=== PATIENT | female | born 1940 | race Caucasian/White ===

== ENCOUNTER → 2018-11-22 | Outpatient (CLI) | payer OTHER | LOC: RAD 13:13 | DX: J98.11 Atelectasis (principal); I10 Essential (primary) hypertension ==

== ENCOUNTER 2019-10-07 10:00 | Emergency (ER) | payer OTHER ==
[~2019-10-07] VITALS: Ht 172.7 cm; Wt 110.2 kg
[2019-10-07] MEDS ORDERED: ANORO ELLIPTA1 EACH INH (10:16)
[2019-10-07] MEDS ORDERED: METFORMIN HCL500 M1 PO (10:16)
[2019-10-07] MEDS ORDERED: PROAIR HFA8.5 GM INH (10:16)
[2019-10-07 11:07] LABS: ABSOLUTE NEUTROPHILS 10.1 thou/uL (1.4-8.2); BASOPHILS 0.2 % (0.0-2.0); EOSINOPHILS 0.1 % (0.0-3.0); HEMATOCRIT 49.1 % (37.0-47.0); HEMOGLOBIN 16.1 gm/dL (12.0-15.0); LYMPHOCYTES 7.2 % (24.0-44.0); MCH 28.9 pg (26.0-34.0); MCHC 32.8 g/dL (28.0-37.0); MCV 88.2 fL (80.0-100.0); MONOCYTES 4.9 % (1.0-8.0); PLATELET COUNT 153 thou/uL (150-400); POLYS 87.6 % (36.0-66.0); RBC 5.57 mil/uL (4.20-5.00); RDW 15.1 % (10.5-14.5); WBC 11.6 thou/uL (4.0-11.0)
[2019-10-07 11:21] LABS: ANION GAP 8 mmol/L (7-16); BUN 19 mg/dL (7-18); CALCIUM 10.1 mg/dL (8.5-10.1); CHLORIDE 104 mmol/L (98-107); CO2 29 mmol/L (21-32); CREATININE 1.3 mg/dL (0.6-1.0); GLUCOSE 196 mg/dL (74-106); POTASSIUM 4.1 mmol/L (3.5-5.1); SODIUM 141 mmol/L (136-145)
[2019-10-07 11:32] LABS: LIPASE 134 U/L (73-393); SGOT 18 U/L (15-37); SGPT 23 U/L (30-65); TOTAL BILIRUBIN 1.5 mg/dL (<0.1-1.0); TOTAL PROTEIN 7.5 g/dL (6.4-8.2); TROPONIN-I <0.06 ng/mL (<0.06)
[2019-10-07] MEDS ORDERED: LIPITOR 20 MG T20 M1 PO (12:11)
[2019-10-07] MEDS ORDERED: AMARYL4 MG PO (12:11)
[2019-10-07] MEDS ORDERED: LEVO-T75 MCG PO (12:11)
[2019-10-07] MEDS ORDERED: LOSARTAN-HCTZ1 EACH PO (12:12)
[2019-10-07] MEDS ORDERED: REQUIP 1 MG TABL1 M1 PO (12:12)
[2019-10-07] MEDS ORDERED: MEGARED OMEGA-1 EAC1 PO (12:13)
[2019-10-07 12:36] LABS: URINE BILIRUBIN NEGATIVE (Negative); URINE BLOOD 3+ (Negative); URINE CLARITY CLEAR; URINE COLOR YELLOW; URINE GLUCOSE-RANDOM* NEGATIVE (Negative); URINE KETONES TRACE (Negative); URINE LEUKOCYTES-REFLEX TRACE (Negative); URINE NITRITE-REFLEX NEGATIVE (Negative); URINE PROTEIN (DIPSTICK) TRACE (Negative); URINE SPECIFIC GRAVITY 1.015 (1.005-1.035); URINE UROBILINOGEN 0.2 E.U./dl (0.2-1.0)
[2019-10-07 12:42] LABS: SQUAMOUS 4-10 Moderate /LPF (0-3)
[2019-10-07 12:43] LABS: CASTS None Seen /LPF (None Seen); CRYSTALS None Seen /LPF (None Seen); MUCUS 0-3 Light strn/LPF (None Seen)
[2019-10-07 12:44] LABS: BACTERIA-REFLEX 1-9 Few /HPF (None Seen); RENAL EPITHELIAL CELLS 0-3 Few /LPF (None Seen); TRANSITIONAL EPITHEL CELL 0-3 Few /LPF (None Seen); URINE RBC >20 Many /HPF (0-2); URINE WBC-REFLEX 0-5 Rare /HPF (0-5)
[2019-10-07] MEDS ORDERED: ZOFRAN ODT4 MG PO (13:20)
[2019-10-07] MEDS ORDERED: NORCO 5-325 TA1 EAC1 PO (13:20)
[2019-10-07] MEDS ORDERED: KEFLEX500 M1 PO (13:20)
[2019-10-07 13:29] VITALS: BP 156/74
--- NOTE | 2019-10-08 08:06 | EKG ---
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: [facility] : 1940 Requested By: Mainor Espinoza Order Number: [id number] MD: Guevara Nation Measurements Intervals [place] Rate: 80 P: 50 DE: 165 QRS: -66 QRSD: 144 T: 25 QT: 428 QTc: 494 Interpretive Statements Sinus rhythm RBBB and LAFB Left ventricular hypertrophy No previous ECG available for comparison Electronically Signed On 10-08-2019 8:04:21 CDT by Guevara Nation [email or web address] <ELECTRONICALLY SIGNED> By: uGevara Nation MD, [facility] 10/08/19 0804 1107 110 Guevara Nation MD, [facility] /EPI
== END 2019-10-07 13:29 | disposition home or self-care (01) ==
LOC: ER 10:00
PROVIDERS: Emergency Medicine
DX: N13.2 Hydronephrosis with renal and ureteral calculous obstruction (principal); R11.2 Nausea with vomiting, unspecified; J44.9 Chronic obstructive pulmonary disease, unspecified; E11.9 Type 2 diabetes mellitus without complications; F17.210 Nicotine dependence, cigarettes, uncomplicated; Z88.0 Allergy status to penicillin; Z90.711 Acquired absence of uterus with remaining cervical stump; Z90.49 Acquired absence of other specified parts of digestive tract; Z79.899 Other long term (current) drug therapy; Z85.42 Personal history of malignant neoplasm of other parts of uterus

== ENCOUNTER → 2019-12-04 | Outpatient (CLI) | payer OTHER ==
[~2019-12-04] MED LIST: AMARYL4 MG PO; ANORO ELLIPTA1 EACH INH; KEFLEX500 M1 PO; LEVO-T75 MCG PO; LIPITOR 20 MG T20 M1 PO; LOSARTAN-HCTZ1 EACH PO; MEGARED OMEGA-1 EAC1 PO; METFORMIN HCL500 M1 PO; NORCO 5-325 TA1 EAC1 PO; PROAIR HFA8.5 GM INH; REQUIP 1 MG TABL1 M1 PO; ZOFRAN ODT4 MG PO
== END ==
LOC: RAD 09:58
PROVIDERS: ATTEND Internal Medicine
DX: I51.7 Cardiomegaly (principal)

== ENCOUNTER → 2021-04-30 | Outpatient (CLI) | payer OTHER | LOC: RAD 11:54 | DX: R05.9 Cough, unspecified (principal); R09.89 Other specified symptoms and signs involving the circulatory and respiratory systems ==

== ENCOUNTER 2021-06-21 11:26 | Emergency (ER) | payer OTHER ==
[~2021-06-21] VITALS: Ht 172.7 cm; Wt 95.3 kg
--- NOTE | ~2021-06-21 | EMS ---
[facility] [address] [place] [address] EMS Patient Care Report Name: IFEOMA OH Room #: DEP PIETER Sun#: [id number] Admission: 06/21/21 Attend Phys: Discharge: 06/21/21 Date of : 44 Report #: [id number] THIS REPORT FOR: //name// Report Transmitted: 06/23/2021 12:08 EMS Care Summary [place], [place]/[facility] Incident [id number] @ 06/21/2021 10:37 Incident Location [address] Patient IFEOMA OH Female, 80 Years 1940 Patient Address [address] [address] [place] [address] Patient History Chronic Obstructive Pulmonary Disease (COPD),Diabetes,Kidney Stone, Patient Allergies Penicillin allergy, Patient Medications Lasix, Metformin, Losartan, Levothyroxine, Chief Complaint lower L back pain Disposition Transported No Lights/[place] Dispatch Reason Sick Person Transported To [facility] Narrative 80 y/o female with lower L back pain upon arrival the pt answered her door and was ready to go. She locked her apt [facility] [address] [place] [address] EMS Patient Care Report Name: IFEOMA OH Room #: DEP Corinne#: [id number] Admission: 06/21/21 Attend Phys: Discharge: 06/21/21 Date of : 44 Report #: [id number] door, sat on the cot in a position of comfort was secured to the cot, and loaded into the ambulance. She is A&O x 4 with a GCS of 15. She has a patent airway, breathing is normal, and has a strong reg radial pulse. The pt states she has been experiencing lower L quad back pain for the last 4 days and that she thinks she has a kidney stone. The pt VS were established. The pt denies blood in urine. She states she hasn't had bowel movement in 2 days. The pt rates her pain as localized chronic lower back pain that feels like she's being stabbed in lower back and rates her pain a 10/10. The pt was transported to [place] per the pt's request with out incident or changes. The pt was transported to [place] per the pt's request. Initial Vitals @11:09P: 75,BP: 132/66,SpO2: 91, @11:06P: 84,R: 14,BP: 148/81,Pain: 10/10,GCS: 15,SpO2: 90,Revised Trauma: 12, Assessments @11:12MENTAL:Time Oriented,Event Oriented,Person Oriented,Place Oriented,SKIN:No Abnormalities,HEENT:Head/Face: No Abnormalities,Neck/Airway: No Abnormalities,LUNG SOUNDS:General: No Abnormalities,ABDOMEN:General: No Abnormalities,PELVIS//GI:No Abnormalities,EXTREMITIES:Capillary Refill: Left Upper: < 2 Sec,Capillary Refill: Right Upper: < 2 Sec,Left Arm: No Abnormalities,Right Arm: No Abnormalities,Left Leg: No Abnormalities,Right Leg: No Abnormalities,PULSE:Radial: 2+ Normal,NEURO:No Abnormalities, Impression Back Pain Procedures @11:12 ALS Assessment Response: UnchangedSucceeded Timeline 10:35,Call Received 10:35,Dispatch Notified 10:37,Dispatched 10:39,En Route 10:51,On Scene 10:52,At Patient 11:06,BP: 148/81 M,PULSE: 84,RR: 14 R,SPO2: 90 Ox,ETCO2: ,BG: ,PAIN: 10,GCS: 15, 11:09,BP: 132/66 M,PULSE: 75,RR: R,SPO2: 91 Ox,ETCO2: ,BG: ,PAIN: ,GCS: , 11:12,ALS Assessment,Response: UnchangedSucceeded, 11:18,Depart Scene 11:28,At Destination 11:40,Call Closed [facility] [address] [place] [address] EMS Patient Care Report Name: IFEOMA OH Room #: DEP [facility]#: [id number] Admission: 06/21/21 Attend Phys: Discharge: 06/21/21 Date of : 44 Report #: [id number] Disclaimer v1.1 Copyright 2021 [employer] This EMS Care Summary contains data elements from the applicable legal record (which may be displayed differently). It is designed to provide pertinent information for the following purposes: continuity of care, clinical quality, and state data reporting. The complete legal record is available to ED staff and administrators of the receiving hospital in [facility]'s Patient Tracker. All data is provided "as is."
--- NOTE | ~2021-06-21 | EMS ---
[facility] [address] [place] [address] EMS Patient Care Report Name: IFEOMA OH Room #: DEP PIETER Sun#: [id number] Admission: 06/21/21 Attend Phys: Discharge: 06/21/21 Date of : 44 Report #: [id number] THIS REPORT FOR: //name// Report Transmitted: 06/22/2021 09:57 EMS Care Summary [place], [place]/[facility] Incident [id number] @ 06/21/2021 10:37 Incident Location [address] Patient IFEOMA OH Female, 80 Years 1940 Patient Address [address] [address] [place] [address] Patient History Chronic Obstructive Pulmonary Disease (COPD),Diabetes,Kidney Stone, Patient Allergies Penicillin allergy, Patient Medications Lasix, Metformin, Losartan, Levothyroxine, Chief Complaint lower L back pain Disposition Transported No Lights/[place] Dispatch Reason Sick Person Transported To [facility] Narrative 80 y/o female with lower L back pain upon arrival the pt answered her door and was ready to go. She locked her apt [facility] [address] [place] [address] EMS Patient Care Report Name: IFEOMA OH Room #: DEP Corinne#: [id number] Admission: 06/21/21 Attend Phys: Discharge: 06/21/21 Date of : 44 Report #: [id number] door, sat on the cot in a position of comfort was secured to the cot, and loaded into the ambulance. She is A&O x 4 with a GCS of 15. She has a patent airway, breathing is normal, and has a strong reg radial pulse. The pt states she has been experiencing lower L quad back pain for the last 4 days and that she thinks she has a kidney stone. The pt VS were established. The pt denies blood in urine. She states she hasn't had bowel movement in 2 days. The pt rates her pain as localized chronic lower back pain that feels like she's being stabbed in lower back and rates her pain a 10/10. The pt was transported to [place] per the pt's request with out incident or changes. The pt was transported to [place] per the pt's request. Initial Vitals @11:09P: 75,BP: 132/66,SpO2: 91, @11:06P: 84,R: 14,BP: 148/81,Pain: 10/10,GCS: 15,SpO2: 90,Revised Trauma: 12, Assessments @11:12MENTAL:Event Oriented,Person Oriented,Place Oriented,Time Oriented,SKIN:No Abnormalities,HEENT:Head/Face: No Abnormalities,Neck/Airway: No Abnormalities,LUNG SOUNDS:General: No Abnormalities,ABDOMEN:General: No Abnormalities,PELVIS//GI:No Abnormalities,EXTREMITIES:Capillary Refill: Left Upper: < 2 Sec,Capillary Refill: Right Upper: < 2 Sec,Left Arm: No Abnormalities,Right Arm: No Abnormalities,Left Leg: No Abnormalities,Right Leg: No Abnormalities,PULSE:Radial: 2+ Normal,NEURO:No Abnormalities, Impression Back Pain Procedures @11:12 ALS Assessment Response: UnchangedSucceeded Timeline 10:35,Call Received 10:35,Dispatch Notified 10:37,Dispatched 10:39,En Route 10:51,On Scene 10:52,At Patient 11:06,BP: 148/81 M,PULSE: 84,RR: 14 R,SPO2: 90 Ox,ETCO2: ,BG: ,PAIN: 10,GCS: 15, 11:09,BP: 132/66 M,PULSE: 75,RR: R,SPO2: 91 Ox,ETCO2: ,BG: ,PAIN: ,GCS: , 11:12,ALS Assessment,Response: UnchangedSucceeded, 11:18,Depart Scene 11:28,At Destination 11:40,Call Closed [facility] [address] [place] [address] EMS Patient Care Report Name: IFEOMA OH Room #: [facility]#: [id number] Admission: 06/21/21 Attend Phys: Discharge: 06/21/21 Date of : 44 Report #: [id number] Disclaimer v1.1 Copyright 2021 [employer] This EMS Care Summary contains data elements from the applicable legal record (which may be displayed differently). It is designed to provide pertinent information for the following purposes: continuity of care, clinical quality, and state data reporting. The complete legal record is available to ED staff and administrators of the receiving hospital in [facility]'s Patient Tracker. All data is provided "as is."
[2021-06-21] MEDS ORDERED: FUROSEMIDE 20 M20 MG PO (11:43)
[2021-06-21 11:54] LABS: CALCIUM 9.8 mg/dL (8.5-10.1); CREATININE 0.6 mg/dL (0.6-1.0); POTASSIUM 4.2 mmol/L (3.5-5.1)
[2021-06-21 12:05] LABS: ALBUMIN 3.8 g/dL (3.4-5.0); TOTAL BILIRUBIN 1.8 mg/dL (0.2-1.0); TOTAL PROTEIN 6.4 g/dL (6.4-8.2)
[2021-06-21 12:15] LABS: ABSOLUTE NEUTROPHILS 5.9 thou/uL (1.4-8.2); BASOPHILS 0.9 % (0.0-2.0); EOSINOPHILS 1.4 % (0.0-3.0); HEMATOCRIT 47.1 % (37.0-47.0); HEMOGLOBIN 15.8 gm/dL (12.0-15.0); LYMPHOCYTES 14.3 % (24.0-44.0); MCH 28.9 pg (26.0-34.0); MCHC 33.5 g/dL (28.0-37.0); MCV 86.4 fL (80.0-100.0); MONOCYTES 8.4 % (1.0-8.0); PLATELET COUNT 127 thou/uL (150-400); RBC 5.45 mil/uL (4.20-5.00); RDW 14.5 % (10.5-14.5); WBC 7.9 thou/uL (4.0-11.0)
[2021-06-21 13:45] LABS: URINE BILIRUBIN NEGATIVE (Negative); URINE BLOOD 2+ (Negative); URINE CLARITY CLEAR; URINE COLOR YELLOW; URINE GLUCOSE-RANDOM* NEGATIVE (Negative); URINE KETONES TRACE (Negative); URINE LEUKOCYTES-REFLEX NEGATIVE (Negative); URINE NITRITE-REFLEX NEGATIVE (Negative); URINE PROTEIN (DIPSTICK) NEGATIVE (Negative); URINE SPECIFIC GRAVITY 1.015 (1.005-1.035)
[2021-06-21 13:55] LABS: CASTS None Seen /LPF (None Seen); CRYSTALS None Seen /LPF (None Seen); SQUAMOUS 0-3 Few /LPF (0-3); URINE RBC >20 Many /HPF (NONE SEEN); URINE WBC-REFLEX 0-5 Rare /HPF (0-5)
[2021-06-21] MEDS ORDERED: CYCLOBENZAPRINE5 MG PO (14:12)
[2021-06-21 14:40] VITALS: BP 125/56
--- NOTE | 2021-06-22 07:32 | EKG ---
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 06/22/21 0732 1202 1202 Armond Argueta MD, [facility] /EPI
== END 2021-06-21 15:11 | disposition home or self-care (01) ==
LOC: ER 11:26
PROVIDERS: Physician Assistant
DX: R10.9 Unspecified abdominal pain (principal); R19.00 Intra-abdominal and pelvic swelling, mass and lump, unspecified site; J44.9 Chronic obstructive pulmonary disease, unspecified; E11.9 Type 2 diabetes mellitus without complications; Z88.0 Allergy status to penicillin

== ENCOUNTER 2021-06-25 19:55 | Inpatient (IN) | payer OTHER ==
[~2021-06-25] VITALS: Ht 172.7 cm; Wt 115.4 kg
--- NOTE | ~2021-06-25 | EMS ---
[address] [address] EMS Patient Care Report Name: IFEOMA OH Room #: 435-P ADM IN M.R.#: [id number] Admission: 06/25/21 Attend Phys: Pernell Luu DO Discharge: Date of : 44 Report #: [id number] THIS REPORT FOR: //name// Report Transmitted: 06/26/2021 15:04 EMS Care Summary [place], [place]/[facility] Incident [id number] @ 06/25/2021 19:03 Incident Location [address] Patient IFEOMA OH Female, 80 Years 1940 Patient Address [address] [place] [address] Patient History Chronic Obstructive Pulmonary Disease (COPD),Diabetes,Kidney Stone, Patient Allergies Penicillin allergy, Patient Medications Metformin, Losartan, Levothyroxine, Lasix, Chief Complaint back pain 2nd to fall from standing height Disposition Transported No Lights/[place] Dispatch Reason Falls Transported To [facility] Narrative Upon arrival PT was laying on left side in living room on the floor. PT stated she had fallen a unknown amount of days ago and was not able to get up. PT's neighbor had heard the PT yelling for help while walking in hallway of [address] [address] EMS Patient Care Report Name: IFEOMA OH Room #: 435-P [facility] IN M.R.#: [id number] Admission: 06/25/21 Attend Phys: Pernell Luu, DO Discharge: Date of : 44 Report #: [id number] apartment. PT was assisted to stretcher via pauline spray drier operator helper and was then taken to back of ambulance for further medical evaluation and intervention. PT was then monitored while en route to hospital for any change in condition. PT was not able to sign for transport due to biohazard on PT hands. Initial Vitals @19:35P: 98,R: 18,BP: 164/84,Pain: 10/10,GCS: 15,SpO2: 84,Revised Trauma: 12, @19:41P: 99,R: 18,BP: 166/82,Pain: 10/10,GCS: 15,SpO2: 90,Revised Trauma: 12, Assessments @19:20MENTAL:No Abnormalities,SKIN:No Abnormalities,HEENT:Head/Face: No Abnormalities,Eyes: No Abnormalities,Neck/Airway: No Abnormalities,LUNG SOUNDS:General: No Abnormalities,Left Upper: No Abnormalities,Right Upper: No Abnormalities,Left Lower: No Abnormalities,Right Lower: No Abnormalities,ABDOMEN:General: No Abnormalities,Left Upper: No Abnormalities,Right Upper: No Abnormalities,Left Lower: No Abnormalities,Right Lower: No Abnormalities,PELVIS//GI:No Abnormalities,EXTREMITIES:Capillary Refill: Left Upper: < 2 Sec,Capillary Refill: Right Upper: < 2 Sec,PULSE:Radial: 2+ Normal,NEURO:No Abnormalities, Impression Back Pain Procedures @19:20 ALS Assessment Response: UnchangedSucceeded @19:36 Oxygen FlowRate: 3 Device: Nasal Cannula (NC) Response: ImprovedSucceeded Timeline 19:00,Call Received 19:00,Dispatch Notified 19:03,Dispatched 19:03,En Route 19:15,On Scene 19:20,At Patient 19:20,ALS Assessment,Response: UnchangedSucceeded, 19:35,BP: 164/84 M,PULSE: 98,RR: 18 R,SPO2: 84 Ox,ETCO2: ,BG: ,PAIN: 10,GCS: 15, 19:36,Oxygen FlowRate: 3 Device: Nasal Cannula (NC) Response: ImprovedSucceeded, 19:37,Depart Scene 19:41,BP: 166/82 M,PULSE: 99,RR: 18 R,SPO2: 90 Ox,ETCO2: ,BG: ,PAIN: 10,GCS: 15, 19:49,At Destination 20:06,Call Closed [address] [address] EMS Patient Care Report Name: IFEOMA OH Room #: 435-P [facility] IN M.R.#: [id number] Admission: 06/25/21 Attend Phys: Pernell Luu DO Discharge: Date of : 44 Report #: [id number] Disclaimer v1.1 Copyright 2021 [employer] This EMS Care Summary contains data elements from the applicable legal record (which may be displayed differently). It is designed to provide pertinent information for the following purposes: continuity of care, clinical quality, and state data reporting. The complete legal record is available to ED staff and administrators of the receiving hospital in [facility]'s Patient Tracker. All data is provided "as is."
[2021-06-25 19:55] VITALS: BP 135/70
[~2021-06-25 19:55] MED LIST changes: +CYCLOBENZAPRINE5 MG PO; +FUROSEMIDE 20 M20 MG PO
[2021-06-25 20:52] LABS: HEMATOCRIT 54.9 % (37.0-47.0); HEMOGLOBIN 17.9 gm/dL (12.0-15.0); MCH 28.4 pg (26.0-34.0); MCHC 32.5 g/dL (28.0-37.0); MCV 87.4 fL (80.0-100.0); RBC 6.29 mil/uL (4.20-5.00); WBC 21.4 thou/uL (4.0-11.0)
[2021-06-25 20:57] LABS: CREATININE 0.9 mg/dL (0.6-1.0); POTASSIUM 4.4 mmol/L (3.5-5.1)
[2021-06-25 21:03] LABS: ALBUMIN 3.4 g/dL (3.4-5.0); MAGNESIUM 2.2 mg/dL (1.8-2.4); TOTAL BILIRUBIN 2.4 mg/dL (0.2-1.0); TOTAL PROTEIN 6.5 g/dL (6.4-8.2)
[2021-06-25 21:59] LABS: URINE BILIRUBIN 2+ (Negative); URINE BLOOD 3+ (Negative); URINE CLARITY CLEAR; URINE COLOR YELLOW; URINE GLUCOSE-RANDOM* NEGATIVE (Negative); URINE KETONES 1+ (Negative); URINE LEUKOCYTES-REFLEX NEGATIVE (Negative); URINE NITRITE-REFLEX NEGATIVE (Negative); URINE PROTEIN (DIPSTICK) 2+ (Negative); URINE SPECIFIC GRAVITY >= 1.030 (1.005-1.035); URINE UROBILINOGEN 0.2 E.U./dl (0.2-1.0)
[2021-06-25 22:24] LABS: BACTERIA-REFLEX 1-9 Few /HPF (None Seen); CASTS None Seen /LPF (None Seen); MUCUS 0-3 Light strn/LPF (None Seen); SQUAMOUS 0-3 Few /LPF (0-3); URINE RBC >20 Many /HPF (NONE SEEN); URINE WBC-REFLEX 0-5 Rare /HPF (0-5)
[2021-06-25 22:25] LABS: CRYSTALS None Seen /LPF (None Seen)
[2021-06-25] MEDS ORDERED: LEVOTHYROXINE88 MCG PO (22:29)
[2021-06-25 23:30] VITALS: BP 158/77
[2021-06-25 23:31] VITALS: BP 158/77
[2021-06-25 23:53] LABS: APTT 27.7 Seconds (24.5-32.8); INR 1.03; PROTIME 11.2 Seconds (10.5-12.1)
[2021-06-26 00:08] VITALS: BP 142/96
--- NOTE | 2021-06-26 00:47 | NUR ---
PT RESTING IN BED. PT ABLE TO FOLLOW PROMPTS. PT KEEPING EYES CLOSED, OPENS UPON REQUEST. LUNGS COARSE. WOUNDS COVERED IN BARRIER CREAM ON COCCYX, PICTURE TAKEN. PT ABLE TO ANSWER ALL QUESTIONS AND ASSIST WITH REPOSITIONING. JEAN-BAPTISTE TO DD, TEA COLOR URINE. O2 PER NC 2L. DUSKY SKIN TONE. BED ALARM ON.
[2021-06-26 05:17] LABS: MCH 28.6 pg (26.0-34.0); MCHC 31.9 g/dL (28.0-37.0); MCV 89.5 fL (80.0-100.0); RBC 5.36 mil/uL (4.20-5.00); RDW 14.8 % (10.5-14.5); WBC 18.4 thou/uL (4.0-11.0)
[2021-06-26 05:23] LABS: CALCIUM 9.2 mg/dL (8.5-10.1); CREATININE 0.9 mg/dL (0.6-1.0); POTASSIUM 3.9 mmol/L (3.5-5.1)
[2021-06-26 05:25] LABS: HEMOGLOBIN 15.3 gm/dL (12.0-15.0)
[2021-06-26 07:53] LABS: % SATURATION 14 % (20-39); IRON 28 ug/dL (50-170); TIBC 205 ug/dL (250-450)
[2021-06-26 08:02] VITALS: BP 111/56
[2021-06-26 08:19] LABS: FOLIC ACID 6.3 ng/mL (8.6-58.9)
[2021-06-26 08:20] LABS: BE(vivo) -1.6 mmol/L (-2 to +3); PCO2 48.9 mmHg (35.0-45.0); PO2 65.7 mmHg (80.0-100.0); pH 7.326 (7.360-7.450); sO2 91.4 % (92.0-98.0)
--- NOTE | 2021-06-26 09:14 | EKG ---
[facility] [place] [address] ELECTROCARDIOGRAM REPORT Name: IFEOMA OH Room #: 435-P ADM IN M.R.#: [id number] Admission: 06/25/21 Attend Phys: Pernell Luu DO Discharge: Date of : 42 Report #: [id number] 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 : 1940 Requested By: Tita Sosa Order Number: [id number] MD: Guevara Nation Measurements Intervals [place] Rate: 94 P: 0 PA: 40 QRS: -72 QRSD: 135 T: 86 QT: 394 QTc: 493 Interpretive Statements Sinus rhythm RBBB and LAFB Left ventricular hypertrophy Baseline wander in lead(s) V6 Compared to ECG 06/21/2021 12:02:13 No significant change was found Electronically Signed On 06-26-2021 9:14:40 PENS AND PENCILS DIPPER by Guevara Nation [email or web address] <ELECTRONICALLY SIGNED> By: Guevara Nation MD, [facility] 06/26/21913 18 18 Guevara Nation MD, [facility] /EPI
--- NOTE | 2021-06-26 09:16 | EKG ---
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 06/26/2115 20 20 Guevara Nation MD, [facility] /EPI
--- NOTE | 2021-06-26 15:21 | NUR ---
met with patient who had eyes closed and sleepy. Patient resides in 4th floor apt with elevator. She has meals on wheels. She uses a cane for ambulation and cont to drive. 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 She has home oxygen via [employer]. Left [facility] skilled list. Discussed post acute care with patient. She reports can discuss with her brother. Sp with her brother he is in agreement with skilled plan. Emailed [employer] skilled list. Brother reports patient likely cannot return to independent living. 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
[2021-06-26 16:19] VITALS: BP 119/77
[2021-06-26 19:21] VITALS: BP 106/71
--- NOTE | 2021-06-26 19:28 | NUR ---
Assumed care of pt at 0700, pt drowsy but oriented. Heart tones normal, lung sounds clear to auscultation. Patient oxygen saturation in 80s on 3L, increased to mid 90s on 5L. RT and MD aware. Incentive spirometer brought to bedside, pt educated on use and assisted. Ruff catheter in place, urine appearance brown/clear but odorous. LAC IV in place with fluids running, no signs of irritation. Pt son and brother/DPOA visited, questions answered. Pt aware of bowel preparation to begin this weekend for colonoscopy on Tuesday. No concerns at this time.
[2021-06-27] VITALS (9 sets, daily range): BP systolic 97–137; BP diastolic 51–74
[2021-06-27 06:00] LABS: HEMATOCRIT 48.9 % (37.0-47.0); HEMOGLOBIN 15.4 gm/dL (12.0-15.0); MCH 28.4 pg (26.0-34.0); MCHC 31.5 g/dL (28.0-37.0); MCV 90.3 fL (80.0-100.0); RBC 5.42 mil/uL (4.20-5.00); RDW 15.4 % (10.5-14.5); WBC 12.9 thou/uL (4.0-11.0)
[2021-06-27 06:33] LABS: CALCIUM 9.9 mg/dL (8.5-10.1); CREATININE 0.9 mg/dL (0.6-1.0); POTASSIUM 4.6 mmol/L (3.5-5.1)
[2021-06-27 06:56] LABS: BE(vivo) -2.1 mmol/L (-2 to +3); PO2 75.9 mmHg (80.0-100.0); sO2 92.4 % (92.0-98.0)
[2021-06-27 06:57] LABS: PCO2 65.3 mmHg (35.0-45.0); pH 7.235 (7.360-7.450)
[2021-06-27 07:12] LABS: GLYCOHEMOGLOBIN (HGB A1C) 6.6 % (4.8-5.6)
--- NOTE | 2021-06-27 07:46 | NUR ---
RECEIVED CARE OF THIS PATIENT AT 1900. PATIENT ALERT AND ORIENTED [place], PLACE AND TIME DURING MOST OF SHIFT. C/O PAIN, MED GIVEN. IV WAS IN LAC NOW IN RAC. RECEIVED ONE TAP WATER ENEMA BEGINNING OF SHIFT. JEAN-BAPTISTE PATENT DARK ELI URINE. ACCUCHECK WAS 190, RECEIVED 3 UNITS LISPRO INSULIN. WENT IN TO GIVE MORNING MEDS AND DO ANOTHER ENEMA BUT PATIENT WOULD NOT COMPLETELY RESPOND. O2 WAS OFF AND IS NORMALLY AT 5L. PATIENT TOOK OFF SEVERAL TIMES THIS SHIFT. SHE WOULD OPEN HER EYES FOR A FEW SECONDS AT FIRST BUT THEN WOULD NOT OPEN AT ALL. DID NOT EVEN RESPOND TO BEING STUCK TO REPLACE HER IV. RAPID RESPONSE WAS CALLED. PATIENT'S O2 SAT AT FIRST WAS 82 THEN 89 AND THEN 62 ON 5L/NC. INCREASED O2 TO 7L. O2 PROBE PLACED ON R EAR AND CURRENTLY SATTING AT 100%. PATIENT STILL WILL NOT OPEN EYES. BASELINE FOR PATIENT IS BEING RESTLESS.
[2021-06-27 08:50] LABS: MAGNESIUM 2.1 mg/dL (1.8-2.4)
--- NOTE | 2021-06-27 11:30 | NUR ---
ASSUMED CARE OF PT AT 0700. RAPID RESPONSE IN ROOM. PT PUT ON BIPAP - DR THOMAS NOTIFIED, VSS. AFEBRILE. NO RESPIRATORY DISTRESS ON BIPAP. SATIURATING AT 93%ON BIPAP. PT BECAME AGITATED/PULLING AT MASK. MITTENS ORDERED AND SITTER INITIATED. MONITORING AND CHECKING PT FREQUENTLY FOR HYGIENE, SKIN AND NUTIRITIONAL NEEDS. PT IS NOT AROUSABLE AT THIS TIME. WILL CONITINUE TO MONITOR PT.
[2021-06-27 12:04] LABS: BE(vivo) -2.9 mmol/L (-2 to +3); PCO2 70.4 mmHg (35.0-45.0); PO2 65.2 mmHg (80.0-100.0); pH 7.201 (7.360-7.450); sO2 87.4 % (92.0-98.0)
--- NOTE | 2021-06-27 17:46 | NUR ---
1740: RN CALLED DR. THOMAS AT THIS TIME REGARDING PT'S IV ACCESS. THIS RN UNABLE TO PLACE SECOND IV, RN REQUESTING MORE CENTRAL ACCESS DUE TO PT ON IVF AND PRECEDEX AND NOW ICU LEVEL OF CARE. PER DR. THOMAS, ATTEMPT TO HAVE IV THERAPY PLACE MIDLINE IF POSSIBLE FIRST AND IF UNABLE, WILL RECONSIDER CENTRAL ACCESS. ADDITONALLY, WHILE ON THE TELEPHONE WITH DR. THOMAS, PT WITH SHORT RUN OF SVT, APPROXIMATELY 4 SECONDS. THEN RETURNED TO SINUS TACH IN 110S, PREVIOUSLY HAS BEEN SR IN 90S. LIKELY DUE TO HYPOXIA PER DR. THOMAS, CONTINUE TO MONITOR ON BIPAP AND NOTIFY IF ANY FURTHER SVT OCCURS PER MD.
--- NOTE | 2021-06-27 18:01 | NUR ---
1800: VASCULAR ACCESS TEAM AT BEDSIDE.
--- NOTE | 2021-06-27 19:03 | NUR ---
A #4F MIDLINE WAS PLACED FOR ACCESS- PERIPHERAL IV LEFT IN PLACE FOR VANCOMYCIN 1,000 WHICH IS NOT RECOMENDED FOR MIDLINE ACCESS. DISCUSSED THIS WITH THE STRIPPING AND BOOKING MACHINE OPERATOR AND SHE VERBALIZED UNDERSTANDING. THE RIGHT UPPER ARM BASILIC WAS WIDLEY PATENT. A #4F MIDLINE WAS PLACED PER HOSPITAL POLICY. TRIMMED TO 15CM AND ADVANCED WITHOUT DIFFICULTY. LINE WAS SECURED AND RELEASED FOR USE
[2021-06-27 19:26] LABS: BE(vivo) -1.7 mmol/L (-2 to +3); HCO3 27.2 mmol/L (22.0-26.0); PCO2 64.3 mmHg (35.0-45.0); PO2 56.7 mmHg (80.0-100.0); sO2 83.8 % (92.0-98.0)
[2021-06-27 19:27] LABS: pH 7.244 (7.360-7.450)
--- NOTE | 2021-06-27 19:29 | NUR ---
1645: PT ARRIVED TO ICU ROOM 237 AT THIS TIME VIA BED ACCOMPANIED BY RN AND INDUSTRIAL CLEANER. PT SLIDE TRANSFERRED TO ICU BED AND MONITORING INITIATED. ASSESSMENT COMPLETE DOCUMENTED. PRECEDEX GTT INITITATED PER EMAR FOR ANXIETY AND TO MINIMIZE PULLING OFF BIPAP. VSS WITH FIO2 OF 70%. WILL CONTINUE TO MONITOR.
[2021-06-28] VITALS (65 sets, daily range): BP systolic 85–113; BP diastolic 40–57
[2021-06-28 05:12] LABS: CALCIUM 9.5 mg/dL (8.5-10.1); CREATININE 0.8 mg/dL (0.6-1.0)
[2021-06-28 05:14] LABS: POTASSIUM 5.6 mmol/L (3.5-5.1)
[2021-06-28 05:16] LABS: ABSOLUTE NEUTROPHILS 9.6 thou/uL (1.4-8.2); BASOPHILS 0.1 % (0.0-2.0); HEMATOCRIT 41.7 % (37.0-47.0); HEMOGLOBIN 13.5 gm/dL (12.0-15.0); LYMPHOCYTES 2.8 % (24.0-44.0); MCH 28.6 pg (26.0-34.0); MCHC 32.3 g/dL (28.0-37.0); MCV 88.4 fL (80.0-100.0); MONOCYTES 5.8 % (1.0-8.0); PLATELET COUNT 134 thou/uL (150-400); POLYS 91.3 % (36.0-66.0); RBC 4.71 mil/uL (4.20-5.00); RDW 15.3 % (10.5-14.5); WBC 10.6 thou/uL (4.0-11.0)
--- NOTE | 2021-06-28 07:45 | NUR ---
DR. THOMAS CALLED. RE K 5.6 AWAITING CALL BACK.
[2021-06-28 10:25] LABS: BE(vivo) -2.4 mmol/L (-2 to +3); HCO3 26.2 mmol/L (22.0-26.0); PCO2 62.3 mmHg (35.0-45.0); PO2 87.5 mmHg (80.0-100.0); sO2 94.9 % (92.0-98.0)
[2021-06-28 10:26] LABS: pH 7.242 (7.360-7.450)
--- NOTE | 2021-06-28 10:45 | NUR ---
DR. THOMAS HERE. UPDATE GIVEN. STAT ABGS PT DOWN TO CT FOR CTA. CRITICAL LABS WILL BE REVIEWED BY DR. THOMAS.
--- NOTE | 2021-06-28 18:42 | HC ---
[facility] [place] [address] CONSULTATION Name: IFEOMA OH Room #: 237-P ADM IN M.R.#: [id number] Admission: 06/25/21 Attend Phys: Pernell Luu DO Discharge: Date of : 44 Report #: [id number] THIS REPORT FOR: cc: Katherine Zafar MD, Jennifer L MD McKittrick, Richard James MD ~ cc: Nate Little MD, Katherine Zafar MD, Randy Emanuel MD, DO Bell, REASON FOR CONSULTATION: Rectal mass. HISTORY OF PRESENT ILLNESS: The patient is a disheveled 80-year-old female who was found down in her apartment who probably has sepsis, but also describes rectal discomfort for several weeks and on CAT scan has a large mass that appears to be abutting the rectum. The patient also describes constipation and pain that has been there for quite some time, is not aware of any blood in her urine or stool. She thinks her weight is fairly stable, though I think she may have mentioned a 20-pound weight loss. The patient denies specific headache, trouble swallowing. She does have some shortness of air. Does have some chronic cough. Does have some rash, which I think is the multiple skin areas that are probably from poor hygiene and scratching herself. No dysuria by her description. She is not sure if she has had any fevers or chills. PAST MEDICAL HISTORY: Remarkable for the history of uterine cancer in 02/2004. We will need to clarify whether she had radiation therapy. Also, history of COPD with tobacco misuse. Also, history of congestive heart failure in the chart, hypertension, hyperlipidemia. PAST SURGICAL HISTORY: Hysterectomy. FAMILY HISTORY: It sounds like there is no cancer or blood disorders. She does tell me that her daughter has some type of a liver trouble that runs in her 's side of the family. She has not good contact with her son and is " from him from several years." She lives independently. 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 No pets at home. Last colonoscopy she says was in 2013. As I mentioned above, she does not report any abnormalities with that. MEDICATIONS: At this time in the hospital currently include Lovenox 40 mg at bedtime, ropinirole 1 mg at bedtime, vancomycin antibiotic IV q.12 hours, cefepime 2 grams b.i.d., losartan 50 daily, famotidine 20 b.i.d., guaifenesin ER 600 b.i.d., levothyroxine 88 mcg daily, budesonide respiratory therapy b.i.d., insulin on a sliding scale, ipratropium, albuterol respiratory therapy q.[address] [address] CONSULTATION Name: ADRIANOIFEOMA Room #: 237-P [facility] IN M.R.#: [id number] Admission: 06/25/21 Attend Phys: Pernell Luu DO Discharge: Date of : 42 Report #: [id number] hours, Tylenol p.r.n., Zofran p.r.n. PHYSICAL EXAMINATION: The patient's height is described as 5 feet 8 inches, 172.7 cm. Weight is 202.3 pounds, 91.76 kg. Recent blood pressure 142/96, O2 sat was 85%, but it has been titrated up as I examined her, respirations 20, pulse 97, currently afebrile at 97.1. Note that she was on 1.5 liters at 85%, I am not sure what the final oxygen supplementation will be. RADIOLOGIC STUDIES: Include a CT head that was without acute changes. There is also a CT abdomen and pelvis. It mentioned no comparison, but there actually is an old CT on the chart from 2019. On this exam, they described a large bilobed mass present along the left posterolateral aspect of the distal rectum measuring 6.9 x 4.7 x 2.6 cm. They do not mention seeing any enlarged retroperitoneal, mesenteric lymph nodes or osseous bony lesions. ASSESSMENT AND PLAN: 1. Rectal mass, worrisome for malignancy, could either be rectal cancer or I guess just distal recurrence of uterine cancer, could also be infection. We will await GI's input to obtain tissue. We will also need to ascertain whether she had radiation therapy for her uterine cancer in the past. 2. History of uterine cancer as above. We will need to try to get records. We will at least understand what stage and whether she had radiation therapy. 3. Presumed possible sepsis. Cultures drawn. Antibiotics being given. Defer to ID and others. 4. Chronic obstructive pulmonary disease with respiratory failure, oxygen and aerosols per others. 5. Diabetes type 2. Management per others. 6. Hypertension, management per others. 7. Hyperlipidemia. Management per others. 8. Hypothyroidism. Management per others. 9. Tobacco abuse. Note, they have counseled on smoking cessation. 10. Weakness. We will most likely involve rehabilitation services as she gets stronger. 11. Mildly low platelets. We will check iron, B12 and folate. Coags are normal. 12. Elevated transaminases, may be related to sepsis. They have been fairly normal a week ago, quite elevated now. We will follow serially. 13. Rhabdomyolysis. CPK trending down. Kidney function appears reasonable. <ELECTRONICALLY SIGNED> By: Derek Tavera MD 06/28/21 1842 [id number] Derek Tavera MD /nt
[2021-06-29] VITALS (23 sets, daily range): BP systolic 101–143; BP diastolic 48–70
--- NOTE | 2021-06-29 03:43 | NUR ---
fio2 on bipap attempted to decrease, per RT. however she does better on the 90% Fio2. became very agtiated and agressive, with combativeness during her bath tonight. gave haldol 4 mg iv. this did relax and allow her to stop pulling at equipement. her bottom has areas of shearing/dermatits. applied barrier cream to areas.
[2021-06-29 05:27] LABS: BE(vivo) -3.4 mmol/L (-2 to +3); HCO3 24.3 mmol/L (22.0-26.0); PCO2 54.5 mmHg (35.0-45.0); PO2 75.5 mmHg (80.0-100.0)
[2021-06-29 05:30] LABS: pH 7.267 (7.360-7.450)
[2021-06-29 06:15] LABS: HEMATOCRIT 41.1 % (37.0-47.0); HEMOGLOBIN 13.5 gm/dL (12.0-15.0); MCH 28.7 pg (26.0-34.0); MCHC 32.7 g/dL (28.0-37.0); MCV 87.8 fL (80.0-100.0); RBC 4.69 mil/uL (4.20-5.00); RDW 14.7 % (10.5-14.5); WBC 12.4 thou/uL (4.0-11.0)
[2021-06-29 06:20] LABS: CALCIUM 10.5 mg/dL (8.5-10.1); CREATININE 0.8 mg/dL (0.6-1.0); POTASSIUM 5.4 mmol/L (3.5-5.1)
--- NOTE | 2021-06-29 07:55 | NUR ---
Pt TRANSFERRED TO ICU. WILL PLACE ON HOLD AND AWAIT NEW ORDERS WHEN APPROPRIATE
--- NOTE | 2021-06-29 11:03 | NUR ---
WOUND CONSULT; THERE ARE TWO AREAS TO THE BILATERAL BUTTOCKS APPROX .5 X .5 X 0.1. THERE ARE NO S/S OF INFECTION. THE PATIENT IS ON AN ICU LOW AIR LOSS BED. RECOMMENDATIONS: -BARRIER CREAM BID. -Q2H TURNING. DISCUSSED WITH RN.
--- NOTE | 2021-06-29 12:52 | 2DMMODE ---
[facility] [place] [address] 2 D/M-MODE ECHOCARDIOGRAM Name: IFEOMA OH Room #: 237-P ADM IN M.R.#: [id number] Admission: 06/25/21 Attend Phys: Pernell Luu DO Discharge: Date of : 42 Report #: [id number] THIS REPORT FOR: cc: Katherine Zafar MD, Jennifer L MD Santiago, Patrick MD [facility] ~ APPROVED REPORT Study performed: 06/29/2021 10:35:20 EXAM: Comprehensive 2D, Doppler, and color-flow Echocardiogram Patient Location: ICU Room #: 237 Status: routine BSA: 2.04 HR: 65 bpm BP: 117/57 mmHg Rhythm: NSR Other Information Study Quality: Good Indications COPD Diabetes Dyspnea Hypertension/HDD 2D Dimensions RVDd: 47.33 mm IVSd: 14.12 (7-11mm) LVOT Diam: 21.34 (18-24mm) LVDd: 54.05 mm PWd: 13.12 (7-11mm) Ascending Ao: 32.73 (22-36mm) LVDs: 37.36 (25-40mm) Left Atrium: 37.56 (27-40mm) Aortic Root: 36.24 mm IVC: 30.00 mm Volumes Left Atrial Volume (Systole) Single Plane 4CH: 59.60 mL Single Plane 2CH: 49.50 mL LA ESV Index: 29.00 mL/m2 Aortic Valve AoV Peak Davsi.: 1.00 m/s [facility] [address] [place] [address] 2 D/M-MODE ECHOCARDIOGRAM Name: IFEOMA OH Room #: 237-P ADM IN M.R.#: [id number] Admission: 06/25/21 Attend Phys: Pernell Luu DO Discharge: Date of : 42 Report #: [id number] AO Peak Gr.: 3.99 mmHg LVOT Max P.12 mmHg LVOT Max V: 0.88 m/s JAYANT Vmax: 3.16 cm2 Mitral Valve E/A Ratio: 0.7 MV Decel. Time: 307.27 ms MV E Max Davis.: 0.73 m/s MV A Davis.: 1.05 m/s MV PHT: 89.11 ms IVRT: 198.39 ms Pulmonary Valve PV Peak Davis.: 0.83 m/s PV Peak Gr.: 2.73 mmHg Pulmonary Vein P Vein S: 0.43 m/s P Vein A: 0.34 m/s P Vein D: 0.26 m/s P Vein A Dur.: 138.4 msec P Vein S/D Ratio: 1.65 Left Ventricle The left ventricle is normal size. There is normal LV segmental wall motion. Mild concentric left ventricular hypertrophy. The left ventricular systolic function is normal. The left ventricular ejection fraction is within the normal range. LVEF is 55-60%. Grade I - abnormal relaxation pattern. Right Ventricle The right ventricle is normal size. The right ventricular systolic function is normal. Atria Left atrium is at the upper limits of normal. Right atrium is mildly dilated. Aortic Valve The aortic valve is normal in structure. The Aortic valve is sclerotic. Trace aortic regurgitation. There is no aortic valvular stenosis. Mitral Valve The mitral valve is normal in structure. Trace mitral regurgitation. No evidence of mitral valve stenosis. Tricuspid Valve The tricuspid valve is normal in structure. There is no tricuspid [facility] [address] [place] [address] 2 D/M-MODE ECHOCARDIOGRAM Name: IFEOMA OH Victor Manuel Room #: 237-P [facility] IN M.R.#: [id number] Admission: 06/25/21 Attend Phys: Pernell Luu DO Discharge: Date of : 42 Report #: [id number] valve regurgitation noted. Pulmonic Valve The pulmonary valve is normal in structure. There is no pulmonic valvular regurgitation. Great Vessels The aortic root is normal in size. IVC is dilated and collapses <50% with inspiration. Pericardium There is no pericardial effusion. <Conclusion> Normal left ventricle size with mild concentric hypertrophy Ejection fraction 55% Grade 1 diastolic dysfunction Mild right atrial enlargement Aortic valve mildly sclerotic without stenosis Normal mitral valve structure and function No tricuspid valve insufficiency No pericardial effusion Normal aortic root size. <ELECTRONICALLY SIGNED> By: Armond Argueta MD, FACC 06/29/21 1252 125 51 Armond Argueta MD, FACC /INF
[2021-06-30] VITALS (20 sets, daily range): BP systolic 100–165; BP diastolic 42–75
[2021-06-30 05:15] LABS: HEMATOCRIT 41.7 % (37.0-47.0); HEMOGLOBIN 13.3 gm/dL (12.0-15.0); MCH 28.2 pg (26.0-34.0); MCHC 31.9 g/dL (28.0-37.0); MCV 88.4 fL (80.0-100.0); RBC 4.71 mil/uL (4.20-5.00); RDW 14.7 % (10.5-14.5); WBC 12.3 thou/uL (4.0-11.0)
[2021-06-30 05:45] LABS: CALCIUM 9.7 mg/dL (8.5-10.1); CREATININE 0.8 mg/dL (0.6-1.0); POTASSIUM 4.7 mmol/L (3.5-5.1)
--- NOTE | 2021-06-30 07:36 | NUR ---
ASSUME CARE 1900. PT/VITALS STABLE. PT IS A/O TO PERSON. UNABL TO DETERMINE ORIENTATION AND HOW APPROPRIATE PT IS. PT IS IMPULSIVE AND PULLS ON MEDICAL DEVICES. ON PRECEDEX, TITRATING PRECEDEX BASED ON HR. FREQUENT ROUNDING TO ASSESS FOR NEEDS, ENSURE PT'S SAFETY AND ENSURE OPTIMAL PATIENT CARE. ASSESSMENT AAS CHARTED. PROGRESSING MODERSTLEY WITH POC. CAN [place]. PT ON BIPAP. PLAN IS TO CONTINUE TO MONITOR AND MANAGE RESP FUNCTION FOR IMPROVEMENT/CONT. ABX THERAPY/ OVERALL HEALTH PROMOTION. WILL CONTINUE TO MONITOR AND FOLLOW WITH POC
--- NOTE | 2021-06-30 09:40 | NUR ---
TALKED TO LORENZO ABOUT HOW PATIENT WAS DOING. TOLD HIM DOCTOR MENDEZ WAS THINKING ABOUT DOING A PROCEDUER TODAY AND HE WOULD HAVE TO CALL BEFORE DOING THIS. THEY ASKED IF HE WOULD CALL ANYWAY AND THAT WAS PASSED ALONG TO DOCTOR MENDEZ. THEY ASKED ABOUT END OF LIFE CARE AND IF SHE COULD STAY IN THE HOSPITAL FOR THIS. I TOLD THEM I WAS NOT SURE AND THEY ARE GOING TO CALL THE SOCAL WORKER THEY TALKED WITH THE OTHER DAY TO FIND OUT MORE.
[2021-06-30 15:45] LABS: BE(vivo) 4.2 mmol/L (-2 to +3); HCO3 27.3 mmol/L (22.0-26.0); PCO2 36.1 mmHg (35.0-45.0); pH 7.497 (7.360-7.450); sO2 91.2 % (92.0-98.0)
[2021-06-30 15:47] LABS: PO2 54.9 mmHg (80.0-100.0)
--- NOTE | 2021-06-30 16:10 | NUR ---
PT CONTINUES WITH AMS AND BIPAP AT 70% FIO2. PT ON VANC, CEFEPIME, AND FLAGYL. PT'S BROTHER WAS AT BEDSIDE THIS DAY AND HAD INDICATED THAT THEY WERE HOPING TO GET UPDATE FROM PHYSICINA. CM NOTIFIED DR. EDOUARD. IT IS ANTICIPATED THAT PT WILL HAVE COLONOSCOPY ONCE MEDICALLY STABLE RELATED TO RECTAL MASS. CM FOLLOWING REGARDING DC PLANNING NEEDS.
[2021-07-01] VITALS (17 sets, daily range): BP systolic 126–151; BP diastolic 53–76
[2021-07-01 06:49] LABS: HEMATOCRIT 42.2 % (37.0-47.0); HEMOGLOBIN 13.8 gm/dL (12.0-15.0); MCH 28.5 pg (26.0-34.0); MCHC 32.8 g/dL (28.0-37.0); MCV 86.9 fL (80.0-100.0); RBC 4.86 mil/uL (4.20-5.00); RDW 14.8 % (10.5-14.5)
[2021-07-01 07:12] LABS: ALBUMIN 2.1 g/dL (3.4-5.0); CALCIUM 9.2 mg/dL (8.5-10.1); CREATININE 0.7 mg/dL (0.6-1.0); DIRECT BILIRUBIN 0.2 mg/dL (<0.1-0.2); POTASSIUM 4.1 mmol/L (3.5-5.1); TOTAL BILIRUBIN 0.7 mg/dL (0.2-1.0); TOTAL PROTEIN 4.9 g/dL (6.4-8.2)
--- NOTE | 2021-07-01 09:34 | NUR ---
Nutrition: consider change IVFs to PPN to provide some nutrition til further POC determined otherwise place central line for TPN to best meet nutrition needs. RD following plan of care.
--- NOTE | 2021-07-01 09:51 | NUR ---
SEAN VALDES PLACEDON LEFT FOOT PER WOUND CARE REQUEST.
--- NOTE | 2021-07-01 10:24 | NUR ---
WOUND CONSULT; THE BILATERAL BUTTOCKS REGIONS WERE ASSESSED AND THERE IS A LARGE AREA TO LEFT BUTTOCK FRICTION VS PRESSURE? APPROXIMATELY 8 X 8 X 0.1 WITH HEALTHY RED WOUND BED. NO ODOR. THE PATIENT IS ON VENTIATOR SUPPORT. NO S/S OF INFECTION. RECOMMENDATIONS; -APPLY A SMALL SACRAL FOAM M/W/F PRN. -OFFLOAD THE AREA BREATHING ISSUES TOLLERATE WITH AT LEAST USING WEDGES AND PILLOWS TO MAKE SMALLER POSITION CHANGES. DISCUSSED WITH RN.
--- NOTE | 2021-07-01 11:49 | NUR ---
Case discussed with the care team and health underwriter spoke with pt's brother/dpoa Jonathon. He confirmed he spoke with Dr. Nuñez and is hoping to talk with Dr. Oscar regarding her respiratory status. She remains on bipap and sedation to keep bipap in place. James was here yesterday. He is keeping pt's son Mayco and dtr in [place] updated. He did bring in a copy of the pt's dpoa for hc and it is on the chart. Message sent to Dr. Oscar. Workup for rectal mass on hold at this time until her respiratory status improves. Pt is a DNR. James notes that they are open to pall care consult or hospice if her prognosis is poor. Support provided and cm contact info provided.
[2021-07-02] VITALS (44 sets, daily range): BP systolic 84–165; BP diastolic 43–105
[2021-07-02 05:05] LABS: HEMATOCRIT 42.5 % (37.0-47.0); HEMOGLOBIN 13.8 gm/dL (12.0-15.0); MCH 28.4 pg (26.0-34.0); MCHC 32.6 g/dL (28.0-37.0); RBC 4.88 mil/uL (4.20-5.00); RDW 14.6 % (10.5-14.5); WBC 14.1 thou/uL (4.0-11.0)
[2021-07-02 05:20] LABS: CALCIUM 9.1 mg/dL (8.5-10.1); CREATININE 0.7 mg/dL (0.6-1.0); POTASSIUM 3.7 mmol/L (3.5-5.1)
--- NOTE | 2021-07-02 06:09 | NUR ---
pt is slowly progressing towards plan of care as evidenced by improving orientation. pt is a&o x 4. pt is however still dependent on bipap for o2 saturation. fio2 settings was increased from 55% to 65% during this shift.
--- NOTE | 2021-07-02 15:51 | NUR ---
PT BROTHER VISITED THIS AFTERNOON. UPDATED HIM AND PATIENT ON PLAN OF CARE
--- NOTE | 2021-07-02 17:23 | NUR ---
I have reviewed the documentation by ELMER HERNANDEZ from 07/02/21 to 07/02/21 and I concur with it. PUJA REDDY
--- NOTE | 2021-07-02 18:23 | NUR ---
PT PROGRESSING TOWARD PLAN OF CARE AEB DECREASE IN OXYGEN NEEDS AND INCREASE IN MENTATION. FAMILY WAS UPDATED THROUGHOUT THE DAY. PT OFF OF PRECEDEX AND TOLERATING OPTIFLO WELL. RN WILL CONTINUE TO MONITOR
[2021-07-02 20:21] LABS: HEMATOCRIT 46.5 % (37.0-47.0); HEMOGLOBIN 15.2 gm/dL (12.0-15.0); MCH 28.2 pg (26.0-34.0); MCHC 32.6 g/dL (28.0-37.0); MCV 86.3 fL (80.0-100.0); RBC 5.39 mil/uL (4.20-5.00); RDW 14.5 % (10.5-14.5); WBC 21.8 thou/uL (4.0-11.0)
[2021-07-02 20:30] LABS: CALCIUM 9.8 mg/dL (8.5-10.1); CREATININE 0.8 mg/dL (0.6-1.0); MAGNESIUM 1.8 mg/dL (1.8-2.4); POTASSIUM 3.5 mmol/L (3.5-5.1)
--- NOTE | 2021-07-02 21:00 | NUR ---
Pt heart rate in 170-180. valsava manuever used. no success. SHERIF Guardado was called and order for 6 mg of adenosine received. No success with adenosine. SHERIF Guardado called again. Order for 2mg versed and 150-200 joule shock received. This charge hand override the 2 mg versed from pyxis and gave it to ERA carballo. ERA Carballo mistakely put order for 6 mg versed. Pt was only given 2 mg versed as witness by ERA Carballo, ERA Johnson, ERA Baird, ERA Joyner and ERA Vogt in the room. No change on patient heart rate after the two shocks delivered. Cardiology consult from Dr Oscar received. 150mg amiodarone bolus order received from SHERIF Guardado.
[2021-07-03] VITALS (87 sets, daily range): BP systolic 68–181; BP diastolic 44–106
--- NOTE | 2021-07-03 07:59 | NUR ---
1900: pt's rhythm turned to SVT during change of shift. stat ekg was done and results reported to Dr. restrepo and HEAD GOLF PROFESSIONAL. adenosine 6mg was ordered and administred. no rhythm change noted. pt adm 6mg versed and shock x 2 at 150j and 200j respectively. no rhythm change noted. pt started on cardizem gtt. stat BMP, CBC and Mg drawn 1999: cardiology consult contacted for pt's SVT and hypotension. amiodarone gtt and 200ml NS bolus ordered and adm. pt's family (James Kellogg) called and notified of pt's status 0: HEAD GOLF PROFESSIONAL called and notified of pt's hypotension. 250ml NS bolus ordered cardizem gtt titrated down with continued hypotension 0: levophed ordered and adm Pt's HR gradually dropped throughout the intervention 0400: pt rhythm conveted to NSR and SB
--- NOTE | 2021-07-03 08:08 | EKG ---
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: REYNALDO : 1940 Requested By: Kelby Oscar Order Number: [id number] MD: Armond Argueta Measurements Intervals [place] Rate: 171 P: -58 CA: 139 QRS: -70 QRSD: 135 T: 84 QT: 291 QTc: 491 Interpretive Statements AFIB RBBB Baseline wander in lead(s) V4,V5 Compared to ECG 06/25/2021 22:21:18 Sinus rhythm no longer present Left ventricular hypertrophy no longer present Electronically Signed On 07-03-2021 8:07:57 ANCHOR TACK PULLER by Armond Argueta [email or web address] <ELECTRONICALLY SIGNED> By: Armond Argueta MD, FACC 07/03/2107 35 35 Armond Argueta MD, [facility] /EPI
[2021-07-03 10:28] LABS: PCO2 42.7 mmHg (35.0-45.0); PO2 68.8 mmHg (80.0-100.0); pH 7.402 (7.360-7.450); sO2 93.8 % (92.0-98.0)
--- NOTE | 2021-07-03 14:41 | NUR ---
Discussed during los with the attending physician. Anna is continue to require Opti-flow. No anticipated discharge over the weekend. Will continue following as needed. Will need to see recommendation from therapy prior to discharge.
--- NOTE | 2021-07-03 16:30 | NUR ---
I have reviewed the documentation by BLANK TOURE from 07/03/21 to 07/03/21 and I concur with it. BRITNEY NIEVES, PT, DPT
[2021-07-04] VITALS (24 sets, daily range): BP systolic 104–160; BP diastolic 48–80
[2021-07-04 03:35] LABS: HEMATOCRIT 47.6 % (37.0-47.0); MCH 27.8 pg (26.0-34.0); MCHC 31.5 g/dL (28.0-37.0); RBC 5.41 mil/uL (4.20-5.00); RDW 15.4 % (10.5-14.5); WBC 22.9 thou/uL (4.0-11.0)
[2021-07-04 05:31] LABS: CALCIUM 9.1 mg/dL (8.5-10.1); CREATININE 0.8 mg/dL (0.6-1.0); POTASSIUM 4.3 mmol/L (3.5-5.1)
--- NOTE | 2021-07-04 16:08 | NUR ---
PT ONEYDA HUDDLESTON'S PHONE NUMBER IS [phone]
--- NOTE | 2021-07-04 17:16 | NUR ---
PT PROGRESIGN TOWARD PLAN OF CARE AEB DECREASED NEED FOR OXYGEN, AND INCREASED MENTATION
[2021-07-05] VITALS (24 sets, daily range): BP systolic 96–146; BP diastolic 47–72
--- NOTE | 2021-07-05 08:00 | NUR ---
PT C/O ABDOMINAL AND BACK PAIN WELL NAUSEA MOST OF THE NOC. PRN PAIN AND ANTI-EMETICS ADMINISTERED ORDERED. SPOKE WITH Gladys EDOUARD MD THIS AM D/T PATIENT CONTINUING TO C/O PAIN AND NAUSEA DESPITE PRN MEDS GIVEN AND NOT DUE FOR SERVERAL MORE HOURS. ORDERS RECEIVED. 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 COLONOSCOPY PLANNED FOR TUESDAY. WILL CONTINUE TO MONITOR AND FOLLOW POC.
--- NOTE | 2021-07-05 11:01 | EKG ---
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: REYNALDO : 1940 Requested By: Kelby Oscar Order Number: [id number] MD: Guevara Nation Measurements Intervals [place] Rate: 147 P: 45 OK: 272 QRS: -75 QRSD: 138 T: 82 QT: 324 QTc: 507 Interpretive Statements Atrial fibrillation RBBB and LAFB Compared to ECG 07/02/2021 19:36:34 No significant change was found Electronically Signed On 07-05-2021 11:01:16 HUMAN RESOURCE PROFESSIONAL by Guevara Nation [email or web address] <ELECTRONICALLY SIGNED> By: Guevara Nation MD, [facility] 07/05/211 27 27 Guevara Nation MD, FAC /EPI
[2021-07-05 12:46] LABS: HEMATOCRIT 46.3 % (37.0-47.0); HEMOGLOBIN 14.8 gm/dL (12.0-15.0); MCHC 32.1 g/dL (28.0-37.0); MCV 87.2 fL (80.0-100.0); PLATELET COUNT 190 thou/uL (150-400); RDW 15.1 % (10.5-14.5); WBC 30.4 thou/uL (4.0-11.0)
[2021-07-05 13:19] LABS: ALBUMIN 2.3 g/dL (3.4-5.0); CALCIUM 9.8 mg/dL (8.5-10.1); CREATININE 0.8 mg/dL (0.6-1.0); POTASSIUM 5.3 mmol/L (3.5-5.1); TOTAL BILIRUBIN 0.7 mg/dL (0.2-1.0); TOTAL PROTEIN 4.9 g/dL (6.4-8.2)
[2021-07-05 13:25] LABS: ABSOLUTE NEUTROPHILS 27.4 thou/uL (1.4-8.2)
[2021-07-05 13:26] LABS: ANISOCYTOSIS 1+
--- NOTE | 2021-07-05 17:58 | NUR ---
PT PROGRESSING TOWARD POC AEB DECREASED PAIN AND MAINTAINING OXYGENATION
--- NOTE | 2021-07-05 21:54 | NUR ---
wrong dosage of versed documented during pm shift of 07/03/21. 2mg of versed draw and adm, and not 6mg as charted during SVT episode.
[2021-07-06] VITALS (26 sets, daily range): BP systolic 101–131; BP diastolic 44–62
--- NOTE | 2021-07-06 08:53 | NUR ---
PT VITALS STABLE OVERNOC. PATIENT DID C/O OF SIGNIFICANT BACK AND ABD PAIN, STATED BACK PAIN WORSE THAN ABD PAIN. PATIENT HAS TROUBLE DESCRIBING HER CONCERNS. PATIENT WILL SAY I FEEL AWFUL BUT WHEN ASKED DIRECT QUES LIKE, ARE YOU IN PAIN, SHE HAS UNABLE TO ANSWER. PATIENT MOVES UPPER EXTREMITIES WELL BUT HAS TO BE ENCOURAGED TO DO SO. PATIENT DOES NOT REALLY MOVE HER LOWER EXTREMITIES AND REQUIRES ASSISTANCE WITH REPOSITIONING. NOTED 2 BLOODY STOOLS IN SCANT TO SMALL AMOUNTS DURING SHIFT. MEPILEX INTACT FROM PREV. NOC SHIFT AND BARRIER CREAM APPLIED. BOTTOM IS PINKISH-RED. PLAN IS FOR PATIENT TO HAVE COLONOSCOPY TUESDAY TO BIOPSY MASS FOUND ON CT. WILL CONTINUE TO MONITOR AND FOLLOW POC.
--- NOTE | 2021-07-06 11:56 | NUR ---
WOUND FOLLOW UP: I WAS ABLE TO ASSESS THE RIGHT BUTTOCKS/SACRUM. BEEFY RED WOUND BED THAT LOOKS CLINICALLY BETTER. NO S/S OF INFECTION. RECOMMENDATIONS: -D/C SACRAL FOAMS AND CHANGE TO JUST MIKAELA LEMUS DISCUSSED WITH RN.
--- NOTE | 2021-07-06 13:46 | NUR ---
Discussed during los with the attending physician and during unit rounds. High flow oxygen. GI scope when stable, possible will be able to move out of the icu today. Cm spoke with patient jober/jenny Ramirez #[phone], no concerns or needs voiced. Education on discharge planning and she will possible require therapy for weakness prior to returning home. Will cont. following as needed.
[2021-07-07] VITALS (18 sets, daily range): BP systolic 101–139; BP diastolic 42–64
[2021-07-07 04:15] LABS: HEMATOCRIT 42.5 % (37.0-47.0); HEMOGLOBIN 13.5 gm/dL (12.0-15.0); MCH 27.8 pg (26.0-34.0); MCHC 31.8 g/dL (28.0-37.0); MCV 87.5 fL (80.0-100.0); RBC 4.86 mil/uL (4.20-5.00); RDW 14.7 % (10.5-14.5); WBC 20.4 thou/uL (4.0-11.0)
[2021-07-07 04:47] LABS: CALCIUM 9.5 mg/dL (8.5-10.1); CREATININE 0.6 mg/dL (0.6-1.0); POTASSIUM 4.9 mmol/L (3.5-5.1)
--- NOTE | 2021-07-07 11:00 | NUR ---
Noted during unit rounds, patient working with therapy and yelling out at times. Patient cont. to require Opti flow oxygen. Scheduled for GI/procedure/gi scope this afternoon. Will cont. following as needed.
--- NOTE | 2021-07-07 12:52 | NUR ---
I have reviewed the documentation by BLANK TOURE from 07/07/21 to 07/07/21 and I concur with it. BRITNEY NIEVES, PT, DPT
--- NOTE | 2021-07-08 04:30 | NUR ---
PT IS A&OX4 WITH OCCASIONAL CONFUSION/FORGETFULNESS NOTED. PT SLOWLY PROGRESSING TOWARD GOALS, THOUGH IS STILL REQUIRING OPTIFLOW AT 50L/60%. JEAN-BAPTISTE IN PLACE TO DD. VSS THROUGHOUT THE SHIFT. CHRONIC LOW BACK PAIN, FREQUENT REPOSITIONING PROVIDED, PRN ANALGESICS ADMINISTERED PER ORDERS WITH SOME RELIEF. BUTTOCK WOUNDS WITHOUT S/SX OF INFECTION. WILL CONTINUE TO OBSERVE FOR CHANGES
[2021-07-08 04:45] VITALS: BP 135/59
[2021-07-08 07:20] VITALS: BP 125/53
--- NOTE | 2021-07-08 10:59 | NUR ---
WOUND CARE F/U; THE PATIENTS WOUND LOOKS CLINICALLY BETTER TODAY. BETTER QUALITY WOUND BED. THE WOUND IS SMALLER TODAY. THE PERIWOUND IS WNL. NO MASCERATION. THE PATIENT IS ALERT AND ORIENTED X3. THE PATIENT IS STRONG ENOUGH TO TURN HERSELF. BREATHING ISSUES REMAIN. MUCH ANXIETY. NO CHANGES TODAY.
[2021-07-08 11:10] VITALS: BP 130/53
--- NOTE | 2021-07-08 16:31 | NUR ---
CHART REVIEWED AND DISCUSSED WITH CARE TEAM. CM MET WITH PT THIS DAY. PT RESTING WITH EYES CLOSED AND CM DID NOT WAKE PT. CM CALLED AND SPOKE TO PTS LI AND BROTHER WILLIAN. CM UPDATED ON PT CONDITION AND THERAPY RECOMMENDATIONS. LORENZO INDICATED HE ALREADY HAD AN [employer] APPROVED LIST FOR SNF FACILTIES. HE REPORTS SPEAKING WITH PT ABOUT IT AND WOULD LIKE TO HAVE REFERRALS SENT TO [facility] AND [facility]. CM INFORMED LORENZO I WOULD SEND REFERRALS OF DC PLANNING. LORENZO ALSO INQUIRED ABOUT LTC PLACEMENT SHOULD IT BE PTS [facility] GOAL. AURA INFORMED IF PT NOT SUCCESSFUL WITH SNF SHE CAN WORK WITH FACILITY TO TRANSITION TO LTC. LORENZO INQUIRED ABOUT MEDICAID TO ASSIST WITH THAT PLANNING. CM CALLED AND SPOKE TO [facility] WHO INDICATED THEY WOULD VISIT PATIENT AND HELP ANSWER QUESTIONS. CM INFORMED [facility] THE PT WILL DC TO SNF AND HAS INS HOWEVER, MAY NEED LTC AND CONSIDERING MEDICAID TO ASSIST WITH THAT PLANNING. CM WILL CONTINUE TO FOLLOW FOR DC PLANNING.
--- NOTE | 2021-07-08 16:31 | NUR ---
I have reviewed the documentation by BLANK TOURE from 07/08/21 to 07/08/21 and I concur with it. FARZANEH BADILLO, PT, DPT
[2021-07-08 17:00] VITALS: BP 99/54
--- NOTE | 2021-07-08 17:39 | NUR ---
ASSUMED CARE OF PATIENT AT 0700. PATIENT A&OX4, ON 50L OPTIFLOW, SR ON TELE AND HAS C/O BACK PAIN. HYDROCODONE AND MORPHINE GIVEN FOR BACK PAIN WITH NONE TO PARTIAL RELIEF. PATIENT TAKES PILLS ONE AT A TIME. ACCU CHECKS COMPLETED AND INSULIN GIVEN PER JUL. WOUND DRESSING AND PHOTOS COMPLETED TODAY. PATIENT PROGRESSING TOWARD POC.
[2021-07-08 20:15] VITALS: BP 135/50
[2021-07-09 04:45] VITALS: BP 132/51
--- NOTE | 2021-07-09 06:45 | NUR ---
Patient making slow progress towards outcome goals. Vital signs and rhythm stable. Continues to require 50L/62% oxygen per optiflow, sats 93-96%. High fall risks, fall precautions in place. Patient asking for pain medication every 4 hours,pain chronic, fair control with Hydrocodone.
[2021-07-09 10:37] VITALS: BP 126/73
[2021-07-09 13:09] VITALS: BP 112/55
--- NOTE | 2021-07-09 15:21 | NUR ---
SPOKE WITH SPEECH PER DR. NARAYANAN' REQUEST TO REEVALUATE PATIENTS SWALLOW.
[2021-07-09 16:59] VITALS: BP 108/57
--- NOTE | 2021-07-09 17:37 | NUR ---
ASSUMED CARE OF PATIENT AT 0700. PATIENT HAD AMS THIS MORNING AND PULLED JEAN-BAPTISTE OUT WITH BALLOON INTACTED AND KEPT TAKING OPTIFLOW OFF. ADDITIONAL JEAN-BAPTISTE ATTEMPTED WITH NO SUCCESS SO PUREWICK WAS PLACED AND IS PATENT. PATIENT REQUIRED PAIN MEDICATIONS EVERY 4 HOURS AND BY LUNCH REACHED A&OX4, BACK TO BASELINE. PATIENTS DIET CHANGED TO PUREED BY PATIENT REQUEST AND MD APPROVAL. SPEECH CALLED TO SEE PATIENT AGAIN WHEN THEY HAVE TIME. PATIENT REMAINS ON OPIFLOW AT 50L, ACCU CHECKS REQUIRED INSULIN WITH EACH MEAL. WOUND CARE COMPLETED THIS MORNING. PATIENT IS SLOWLY MAKING PROGRESS TOWARD POC.
[2021-07-09 20:27] VITALS: BP 127/60
[2021-07-10 03:25] VITALS: BP 133/70
--- NOTE | 2021-07-10 03:45 | NUR ---
RECEIVED PATIENT AT 1900H.ASSESSMENT DONE CHARTED.MEDS GIVEN PER JUL.PAIN MEDICATION GIVEN NEEDED.TURNED PATIENT.ALL NEEDS ATTENDED.TO CONTINOUSLY MONITOR.
[2021-07-10 07:37] VITALS: BP 145/65
[2021-07-10 11:27] VITALS: BP 119/60
[2021-07-10 15:27] VITALS: BP 117/47
--- NOTE | 2021-07-10 15:32 | NUR ---
CHART REVIEWED AND DISUSSED WITH CARE TEAM. PT NOT GETTING OOB RELATED TO RESP STATUS. PT STILL ON OPTIFLOW OXYGEN. AWAITING FOR PULM STATUS TO IMPROVE BEFORE GI PROCEDURE. PLAN CONTINUE TO BE SNF ONCE MEDICALLY STABLE TO DC. REFERRALS SENT TO [facility]. THEY ARE NOT ACCEPTING NEW PTS AT THIS TIME UNLESS THEY ARE [facility]. [facility]. IT IS ANTICIPATED PT WILL BE HERE THROUGH THE WEEKEND. NO FURTHER CM INTERVENTIONS AT THIS TIME.
--- NOTE | 2021-07-10 16:13 | NUR ---
I have reviewed the documentation by BLANK TOURE from 07/10/21 to 07/10/21 and I concur with it. BRITNEY NIEVES, PT, DPT
[2021-07-10 19:23] VITALS: BP 102/51
[2021-07-11 03:02] VITALS: BP 146/53
--- NOTE | 2021-07-11 03:44 | NUR ---
RECEIVED PATIENT AT 1900H.ASSESSMENTO DONE CHARTED.MEDS GIVEN PER JUL.PAIN MEDS GIVEN NEEDED.TURNING DONE.ALL NEEDS ATTENDED.TO CONTINOUSLY MONITOR.
[2021-07-11 07:49] VITALS: BP 125/50
[2021-07-11 09:37] LABS: ABSOLUTE NEUTROPHILS 10.2 thou/uL (1.4-8.2); EOSINOPHILS 0.5 % (0.0-3.0); HEMATOCRIT 45.8 % (37.0-47.0); HEMOGLOBIN 14.4 gm/dL (12.0-15.0); LYMPHOCYTES 9.2 % (24.0-44.0); MCH 27.5 pg (26.0-34.0); MCHC 31.5 g/dL (28.0-37.0); MCV 87.3 fL (80.0-100.0); MONOCYTES 8.6 % (1.0-8.0); PLATELET COUNT 145 thou/uL (150-400); POLYS 81.7 % (36.0-66.0); RBC 5.25 mil/uL (4.20-5.00); RDW 15.1 % (10.5-14.5); WBC 12.5 thou/uL (4.0-11.0)
[2021-07-11 10:01] LABS: ALBUMIN 2.3 g/dL (3.4-5.0); CALCIUM 9.4 mg/dL (8.5-10.1); CREATININE 0.7 mg/dL (0.6-1.0); MAGNESIUM 2.1 mg/dL (1.8-2.4); POTASSIUM 4.9 mmol/L (3.5-5.1); TOTAL BILIRUBIN 0.6 mg/dL (0.2-1.0)
[2021-07-11 11:25] VITALS: BP 110/54
[2021-07-11 15:09] LABS: HEMATOCRIT 39.7 % (37.0-47.0); HEMOGLOBIN 12.8 gm/dL (12.0-15.0)
[2021-07-11 15:23] LABS: INR 0.91
[2021-07-11 15:29] VITALS: BP 108/46
[2021-07-11 15:56] LABS: URINE BILIRUBIN NEGATIVE (Negative); URINE BLOOD 1+ (Negative); URINE CLARITY SL CLOUDY; URINE COLOR YELLOW; URINE GLUCOSE-RANDOM* NEGATIVE (Negative); URINE KETONES NEGATIVE (Negative); URINE LEUKOCYTES-REFLEX NEGATIVE (Negative); URINE NITRITE-REFLEX NEGATIVE (Negative); URINE PROTEIN (DIPSTICK) NEGATIVE (Negative); URINE UROBILINOGEN 0.2 E.U./dl (0.2-1.0)
[2021-07-11 16:07] LABS: CASTS None Seen /LPF (None Seen); SQUAMOUS 0-3 Few /LPF (0-3)
[2021-07-11 16:08] LABS: BACTERIA-REFLEX 1-9 Few /HPF (None Seen); CRYSTALS None Seen /LPF (None Seen); URINE RBC 1-2 Rare /HPF (NONE SEEN); URINE WBC-REFLEX 6-15 Few /HPF (0-5); YEAST-REFLEX Present (None Seen)
[2021-07-11 17:34] LABS: HEMATOCRIT 37.7 % (37.0-47.0); HEMOGLOBIN 12.2 gm/dL (12.0-15.0)
[2021-07-11 19:30] VITALS: BP 134/59
[2021-07-11 22:30] VITALS: BP 143/55
[2021-07-12 00:29] LABS: HEMATOCRIT 37.5 % (37.0-47.0)
[2021-07-12 04:40] VITALS: BP 113/57
--- NOTE | 2021-07-12 06:03 | NUR ---
RECEIEVED PATIENT AT 1900H.ASSESSMENT DONE CHARTED.NUCLEAR MED SCAN FOR GI BLEED DONE AND SEEN BY DR. MARTÍNEZ, NO ACTIVE BLEEDING AT THIS TIME A SPER DR. MARTÍNEZ AND NO ACTIVE INTERVENTION NEEDED THIS TIME.KEPT NPO, HOLD ALL PO MEDS FOR TONIGHT PER [employer].HEMOGLOBIN AND HEMATOCRIT MONITORED AND RELAYED TO [employer].MEDS GIVEN PER.ALL NEEDS ATTENDED.TO CONTINOUSLY MONITOR.
[2021-07-12 06:39] LABS: HEMATOCRIT 36.4 % (37.0-47.0); HEMOGLOBIN 11.8 gm/dL (12.0-15.0)
[2021-07-12 08:36] VITALS: BP 125/45
[2021-07-12 11:27] VITALS: BP 131/49
[2021-07-12 15:23] VITALS: BP 117/41
--- NOTE | 2021-07-12 19:28 | NUR ---
HOSPICE NOTE. PATIENTS SON SPOKE WITH AIDA AT [facility] AND STATED THEY HAD A ROOM AVAILABLE FOR THE PATIENT. I CALLED THE [facility] ANSWERING SERVICE, AIDA CALLED ME BACK STATING THE ROOM THEY HAD EARLIER HAS BEEN TAKING AND WILL NOT BE ABLE TO ACCEPT THE PATIENT TONIGHT. AIDA STATED THEY CAN WORK ON GETTING THE PATIENT ADMITTED TOMORROW. AIDA ALSO GAVE ME HER CELL PHONE NUMBER WHICH IS [phone], ALSO THE FAX NUMBER WHICH IS [phone].
[2021-07-12 19:32] VITALS: BP 104/47
--- NOTE | 2021-07-13 01:52 | NUR ---
ASSUMED PT CARE AT 1900, ALERT AND ORIENTEDX3-4, CONFUSED, PT PULLED ,MIDLINE, PIV AND TELE MONITOR BEGINNING OF SHIFT, PT IS SR ON TELE, C/O BACK PAIN, CONTROLLED WITH HYDROCODONE AND MORPHIN WITH GOOD RELIEF, PT REFUSED OXYGEN STATING "I AM READY TO GO" PT CALLED OUT FOR HELP AND AGITATED, ATIVAN GIVENX1, PT IS ORIENTED TO SELF, ATIVAN GIVENX1, PT SLEEPING AT THIS TIME, WILL CONTINUE TO MONITOR
[2021-07-13 05:01] VITALS: BP 118/44
[2021-07-13 09:07] VITALS: BP 127/51
[2021-07-13] MEDS ORDERED: Nicotine Transdermal TRANSDERM (10:21)
[2021-07-13] MEDS ORDERED: MORPHINE SU0.2 MG/ML PO (10:22)
[2021-07-13] MEDS ORDERED: ATIVAN0.5 M1 PO (10:23)
--- NOTE | 2021-07-13 11:55 | NUR ---
JS GIRARD INFORMED CM THIS AM PT PLAN OF CARE TO DISCHARGE TO [facility] THIS DAY. AURA SPOKE TO JS ABOUT PT PROGNOSIS AND IF STABLE TO TRANSFER. AURA REVIEWED CHART AND DISCUSSED WITH CARE TEAM. AURA SPOKE TO DR ZHANG REGARDING IF PT WAS STABLE TO TRANSFER OR INTIATE GIP. DR ZHANG INDICATED PT FAMILY WISHES TO BE AT [facility] TO HONOR PT WISHES. DR ZHANG INSTRUCTED TO AWAIT HOSPICE EVAL THIS AM. IF INSTRUCTED PT SAFE TO TRANSFER DC TO [facility]. IF NOT SAFE TO TRANSFER INTIIATE GIP. [facility] EVALED PT AND INDICATED PT SAFE TO TRANSFER. CM FAXED REFERRAL TO [facility] AT [phone]. CALLED AND SPOKE TO AIDA AND ORDERS RECEIVED. AIDA INFORMED AURA CUI RN WOULD NOTIFY ME WITH A TRANSFER TIME. AURA CALLED AND SPOKE TO PTS [facility] [phone] UPDATED ON PLAN. PTS [facility] ALSO AWARE. CM AWAITING DC ORDERS AND WILL FAX TO [facility]. WILL NOTIFY FAMILY AND TEAM WITH KNOWN TRANSFER TIME.
[2021-07-13 12:08] VITALS: BP 100/38
--- NOTE | 2021-07-13 12:54 | NUR ---
REPORT CALLED TO HOSPICE HOUSE SPOKE WITH LUIS ALFREDO. SHE ASKED FOR THE JEAN-BAPTISTE AND IV TO REMAIN IN PLACE. [phone]
--- NOTE | 2021-07-13 15:33 | NUR ---
DISCHARGED PATIENT. PATIENT DISCHARGED TO HOSPICE HOUSE. REPORT CALLED SEE PREVIOUSE NOTE. PATIENT WAS TRANSPORTED VIA [facility] DEPT. ASSISSTED AMBULANCE CREW IN MOVING PATIENT FROM BED TO COT WITHOUT INCIDENT. REMOVED APPEALS REVIEWER VETERAN. LEFT IV AND JEAN-BAPTISTE IN PLACE PER TRANSFER REQUEST.
== END 2021-07-13 15:54 | disposition hospice, inpatient (51) | DRG 871 ==
LOC: ER 19:55 → EROBS 22:11 → ICU 22:11 → 4S 22:11 → ICU 06-27 16:48 → 2N 07-07 16:37
PROVIDERS: Hospitalist; Internal Medicine; Internal Medicine Hematology & Oncology; Internal Medicine Pulmonary Disease; Nurse Practitioner; Nurse Practitioner Family; Pediatrics; Specialist; Student in an Organized Health Care Education/Training Program; ADMIT Pediatrics; ATTEND Pediatrics
PROC: 05HB33Z Insertion of Infusion Device into Right Basilic Vein, Percutaneous Approach (ICD-10-PCS; principal; 2021-06-26)
PROC: 5A0935A Assistance with Respiratory Ventilation, Less than 24 Consecutive Hours, High Flow/Velocity Cannula (ICD-10-PCS; 2021-07-08)
PROC: 5A0935A Assistance with Respiratory Ventilation, Less than 24 Consecutive Hours, High Flow/Velocity Cannula (ICD-10-PCS; 2021-07-10)
PROC: 5A0935A Assistance with Respiratory Ventilation, Less than 24 Consecutive Hours, High Flow/Velocity Cannula (ICD-10-PCS; 2021-07-11)
PROC: 5A0935A Assistance with Respiratory Ventilation, Less than 24 Consecutive Hours, High Flow/Velocity Cannula (ICD-10-PCS; 2021-07-12)
PROC: 5A0935A Assistance with Respiratory Ventilation, Less than 24 Consecutive Hours, High Flow/Velocity Cannula (ICD-10-PCS; 2021-07-12)
PROC: 5A09357 Assistance with Respiratory Ventilation, Less than 24 Consecutive Hours, Continuous Positive Airway Pressure (ICD-10-PCS; 2021-07-12)
DX: A41.9 Sepsis, unspecified organism (principal); E43 Unspecified severe protein-calorie malnutrition; J18.9 Pneumonia, unspecified organism; J96.21 Acute and chronic respiratory failure with hypoxia; G92.8 Other toxic encephalopathy; J96.22 Acute and chronic respiratory failure with hypercapnia; S32.019A Unspecified fracture of first lumbar vertebra, initial encounter for closed fracture; M62.82 Rhabdomyolysis; E87.0 Hyperosmolality and hypernatremia; I47.1 Supraventricular tachycardia; C20 Malignant neoplasm of rectum; K62.5 Hemorrhage of anus and rectum; J44.0 Chronic obstructive pulmonary disease with (acute) lower respiratory infection; J98.11 Atelectasis; K62.89 Other specified diseases of anus and rectum; D69.6 Thrombocytopenia, unspecified; J44.9 Chronic obstructive pulmonary disease, unspecified; E11.65 Type 2 diabetes mellitus with hyperglycemia; I50.9 Heart failure, unspecified; Z88.0 Allergy status to penicillin; Z66 Do not resuscitate; I48.0 Paroxysmal atrial fibrillation; Z79.01 Long term (current) use of anticoagulants; Z87.891 Personal history of nicotine dependence; Z20.822 Contact with and (suspected) exposure to COVID-19; Z85.42 Personal history of malignant neoplasm of other parts of uterus; F32.A Depression, unspecified; Z90.710 Acquired absence of both cervix and uterus; Z79.4 Long term (current) use of insulin; W18.39XA Other fall on same level, initial encounter; Y93.89 Activity, other specified; Y92.89 Other specified places as the place of occurrence of the external cause; Y99.8 Other external cause status; E87.5 Hyperkalemia; E78.00 Pure hypercholesterolemia, unspecified
CPT/HCPCS: 10078; 10081; 10195; 10203; 10204; 27000